=== PATIENT | female | born 1960 | race Caucasian/White ===

== ENCOUNTER 2020-03-04 09:34 | Emergency (ER) | payer BC, OTHER ==
--- NOTE | 2020-03-04 10:15 | EDPHYS ---
Physician Documentation [facility] Name: Ita Valles Age: 59 yrs Sex: Female : 1960 Arrival Date: 03/04/2020 Time: 09:35 Bed 24 Private MD: ED Physician Jose Reynoso HPI: 03/04 10:11 This 59 yrs old Female presents to ER via Ambulatory with complaints of jr8 Laceration To Head. 10:11 The patient has a laceration related to: fall injury occurred at home. The jr8 laceration(s) is(are) located on the back of head. Onset: The symptoms/episode began/occurred acutely, today. Associated signs and symptoms: The patient has no apparent associated signs or symptoms. The patient has not experienced similar symptoms in the past. The patient has not recently seen a physician. Patient stated that she tripped and hit back of head on door frame. Denies LOC . Historical: - Allergies: 09:56 No Known Allergies; iw - Home Meds: 09:56 atenolol Oral [Active]; sertraline oral oral [Active]; amlodipine oral [Active]; iw Simvastatin Oral [Active]; - PMHx: 09:56 Hyperlipidemia; Hypertension; iw - PSHx: 09:56 None; iw - Immunization history:: Adult Immunizations up to date. - Social history:: Smoking status: . ROS: 10:11 Eyes: Negative for injury, pain, redness, and discharge, ENT: Negative for injury, jr8 pain, and discharge, Neck: Negative for injury, pain, and swelling, Cardiovascular: Negative for chest pain, palpitations, and edema, Respiratory: Negative for shortness of breath, cough, wheezing, and pleuritic chest pain, Abdomen/GI: Negative for abdominal pain, nausea, vomiting, diarrhea, and constipation, Back: Negative for injury and pain, MS/Extremity: Negative for injury and deformity, Neuro: Negative for headache, weakness, numbness, tingling, and seizure. 10:11 Skin: Positive for laceration(s). Exam: 10:11 Eyes: Pupils equal round and reactive to light, extra-ocular motions intact. Lids and jr8 lashes normal. Conjunctiva and sclera are non-icteric and not injected. Cornea within normal limits. Periorbital areas with no swelling, redness, or edema. ENT: Nares patent. No nasal discharge, no septal abnormalities noted. Tympanic membranes are normal and external auditory canals are clear. Oropharynx with no redness, swelling, or masses, exudates, or evidence of obstruction, uvula midline. Mucous membranes moist. Neck: Trachea midline, no thyromegaly or masses palpated, and no cervical lymphadenopathy. Supple, full range of motion without nuchal rigidity, or vertebral point tenderness. No Meningismus. Cardiovascular: Regular rate and rhythm with a normal S1 and S2. No gallops, murmurs, or rubs. Normal PMI, no JVD. No pulse deficits. Respiratory: Lungs have equal breath sounds bilaterally, clear to auscultation and percussion. No rales, rhonchi or wheezes noted. No increased work of breathing, no retractions or nasal flaring. Abdomen/GI: Soft, non-tender, with normal bowel sounds. No distension or tympany. No guarding or rebound. No evidence of tenderness throughout. Back: No spinal tenderness. No costovertebral tenderness. Full range of motion. MS/ Extremity: Pulses equal, no cyanosis. Neurovascular intact. Full, normal range of motion. Neuro: Awake and alert, GCS 15, oriented to person, place, time, and situation. Cranial nerves II-XII grossly intact. Motor strength 5/5 in all extremities. Sensory grossly intact. Cerebellar exam normal. Normal gait. 10:11 Head/face: Noted is a laceration(s), that is deep, that is linear, 2 cm(s), of the back of head. Vital Signs: 09:56 BP 153 / 74; Pulse 75; Resp 16; Temp 98.6; Pulse Ox 100% on R/A; Weight 77.11 kg; iw Height 5 ft. 9 in. (175.26 cm); Pain 4/10; 09:56 Body Mass Index 25.10 (77.11 kg, 175.26 cm) iw Laceration: 10:11 Wound Repair of 2cm ( 0.8in ) subcutaneous laceration to back of head. Linear shaped.. jr8 Minimal bleeding noted.. Distal neuro/vascular/tendon intact. Wound prep: Moderate cleansing with hibiclenz by nurse, Wound irrigation with saline by nurse. Skin closed with 2 darian [place] using staple gun. Patient tolerated well. MDM: 10:04 Patient medically screened. jr8 10:11 Data reviewed: vital signs, nurses notes, and as a result, I will discharge patient. jr8 Data interpreted: Pulse oximetry: on room air is 100 %. Interpretation: normal. Counseling: I had a detailed discussion with the patient and/or guardian regarding: the historical points, exam findings, and any diagnostic results supporting the discharge/admit diagnosis, the need for outpatient follow up, a family practitioner, to return to the emergency department if symptoms worsen or persist or if there are any questions or concerns that arise at home. ED course: Per patient up to date on Tetanus. Administered Medications: No medications were administered Disposition: 13:16 Co-signature as Attending Physician, Jose Reynoso MD. rn Disposition: 03/04/20 10:15 Discharged to Home. Impression: Laceration without foreign body of scalp. - Condition is Stable. - Discharge Instructions: Laceration Care, Adult, Stitches, [place], or Adhesive Wound Closure. - Medication Reconciliation Form, Thank You Letter, Antibiotic Education, Prescription Opioid Use form. - Follow up: Private Physician; When: 1 week; Reason: Wound Recheck, Recheck today's complaints, Continuance of care, Staple/Suture removal, Re-evaluation by your physician. - Problem is new. - Symptoms have improved. Signatures: Beena Street RN RN iw Nieto, Roman, MD MD rn Roszak, Josh, PA PA jr8 Corrections: (The following items were deleted from the chart) 10:23 10:15 03/04/2020 10:15 Discharged to Home. Impression: Laceration without foreign body iw of scalp. Condition is Stable. Forms are Medication Reconciliation Form, Thank You Letter, Antibiotic Education, Prescription Opioid Use. Follow up: Private Physician; When: 1 week; Reason: Wound Recheck, Recheck today's complaints, Continuance of care, Staple/Suture removal, Re-evaluation by your physician. Problem is new. Symptoms have improved. jr8
--- NOTE | 2020-03-04 10:15 | ER ---
Nurse's Notes [facility] Name: Ita Valles Age: 59 yrs Sex: Female : 1960 Arrival Date: 03/04/2020 Time: 09:35 Bed 24 Private MD: Diagnosis: Laceration without foreign body of scalp Presentation: 03/04 09:54 Chief complaint: Patient states: was cleaning floors an slipped, fell back and hit back iw of head on floor, abrasion to back of head, was worried it might need stitches, denies LOC. Coronavirus screen: At this time, the client does not indicate any symptoms associated with coronavirus-19. Ebola Screen: Patient negative for fever greater than or equal to 101.5 degrees Fahrenheit, and additional compatible Ebola Virus Disease symptoms Patient denies exposure to infectious person. Patient denies travel to an Ebola-affected area in the 21 days before illness onset. No symptoms or risks identified at this time. Complicating Factors: There are no complicating factors for this patient. Initial Sepsis Screen: Does the patient meet any 2 criteria? No. Patient's initial sepsis screen is negative. Does the patient have a suspected source of infection? No. Patient's initial sepsis screen is negative. Risk Assessment: Do you want to hurt yourself or someone else? Patient reports no desire to harm self or others. Onset of symptoms was March 04, 2020. 09:54 Method Of Arrival: Ambulatory iw 09:54 Acuity: LUANNE 4 iw Historical: - Allergies: 09:56 No Known Allergies; iw - Home Meds: 09:56 atenolol Oral [Active]; sertraline oral oral [Active]; amlodipine oral [Active]; iw Simvastatin Oral [Active]; - PMHx: 09:56 Hyperlipidemia; Hypertension; iw - PSHx: 09:56 None; iw - Immunization history:: Adult Immunizations up to date. - Social history:: Smoking status: . Screenin:07 Abuse screen: Denies threats or abuse. Denies injuries from another. Nutritional iw screening: No deficits noted. Tuberculosis screening: No symptoms or risk factors identified. Fall Risk None identified. Assessment: 10:06 General: Appears in no apparent distress. Behavior is calm, cooperative. Pain: iw Complains of pain in back of head. Neuro: Level of Consciousness is awake, alert, obeys commands, Oriented to person, place, time, situation, Denies dizziness, headache. Cardiovascular: Patient's skin is warm and dry. Musculoskeletal: Range of motion: intact in all extremities. Injury Description: Laceration sustained to scalp is superficial, 0.5 to 2.5 cm long. Vital Signs: 09:56 BP 153 / 74; Pulse 75; Resp 16; Temp 98.6; Pulse Ox 100% on R/A; Weight 77.11 kg; iw Height 5 ft. 9 in. (175.26 cm); Pain 4/10; 09:56 Body Mass Index 25.10 (77.11 kg, 175.26 cm) iw ED Course: 09:35 Patient arrived in ED. as 09:55 Triage completed. iw 09:[address], RN is Primary Nurse. iw 10:04 Justino Barbosa PA is PHCP. jr8 10:04 Jose Reynoso MD is Attending Physician. jr8 10:06 Arm band placed on. iw 10:06 Patient has correct armband on for positive identification. iw 10:07 Assist provider with laceration repair on back of head that was 2.5 cm. or less using iw darian. Set up tray. Performed by Justino ELKINS Patient tolerated well. 10:07 Patient did not have IV access during this emergency room visit. iw Administered Medications: No medications were administered Outcome: 10:15 Discharge ordered by . jr8 10:22 Discharged to home ambulatory. iw 10:22 Condition: good 10:22 Discharge instructions given to patient, Instructed on discharge instructions, follow up and referral plans. wound care, Demonstrated understanding of instructions, follow-up care, wound care. 10:23 Patient left the ED. iw Signatures: Rosio Jerry as Beena Street RN RN iw Justino Barbosa PA PA jr8 Corrections: (The following items were deleted from the chart) 10:22 10:07 No provider procedures requiring assistance completed. iw iw
[2020-03-04 10:45] VITALS: BP 153/74; TEMP 98.6; O2SAT 100
== END 2020-03-04 10:23 | disposition home or self-care (01) ==
LOC: ER 09:34
PROC: 0JQ00ZZ Repair Scalp Subcutaneous Tissue and Fascia, Open Approach (ICD-10-PCS; principal; 2020-03-04)
DX: S01.01XA Laceration without foreign body of scalp, initial encounter (principal); W01.198A Fall on same level from slipping, tripping and stumbling with subsequent striking against other object, initial encounter; Y93.9 Activity, unspecified; Y92.009 Unspecified place in unspecified non-institutional (private) residence as the place of occurrence of the external cause; I10 Essential (primary) hypertension; E78.5 Hyperlipidemia, unspecified
CPT/HCPCS: 99283

== ENCOUNTER 2020-03-11 09:23 | Emergency (ER) | payer BC ==
--- NOTE | 2020-03-11 09:50 | EDPHYS ---
Physician Documentation [facility] Name: Ita Valles Age: 59 yrs Sex: Female : 1960 Arrival Date: 03/11/2020 Time: 09:25 Bed 14 Private MD: ED Physician Kalin Biswas HPI: 03/11 11:33 This 59 yrs old Female presents to ER via Ambulatory with complaints of kdr Staple Removal. 11:33 The patient has darian on the left parietal area. Previous treatment: The patient was kdr initially treated 7 day(s) ago, the care was rendered at [facility], Treatment type: The patient's original treatment included darian, Outpatient prescription(s): The patient was given prescription(s) for nothing, Previous recheck: the patient has not been checked since the original treatment. Sutures/darian progress: The patient has no c/o's. The wound is well-healing with no redness, swelling, discharge, or dehiscence reported. The patient has not experienced similar symptoms in the past. The patient has been recently seen by a physician: The patient has been recently seen at the [facility] Emergency Department, last week. Historical: - Allergies: 09:39 No Known Allergies; hb - Home Meds: 09:39 amlodipine oral [Active]; Atenolol Oral [Active]; sertraline Oral [Active]; Simvastatin hb Oral [Active]; - PMHx: 09:39 Hyperlipidemia; Hypertension; hb - PSHx: 09:39 None; hb - Immunization history:: Adult Immunizations up to date. - Social history:: Smoking status: Patient denies any tobacco usage or history of. ROS: 11:33 Constitutional: Negative for fever, chills, and weight loss, Eyes: Negative for injury, kdr pain, redness, and discharge, Neck: Negative for injury, pain, and swelling, Skin: Negative for injury, rash, and discoloration. Exam: 11:33 Constitutional: This is a well developed, well nourished patient who is awake, alert, kdr and in no acute distress. 11:33 Head/face: Noted is two staple in the left posterior occiput that are healing well. Vital Signs: 09:37 BP 148 / 81; Pulse 82; Resp 16; Temp 97.4; Pulse Ox 100% ; Pain 0/10; hb Procedures: 11:33 Suture/Staple removal: Removed 2 darian, from left parietal area, site appears well kdr healed, dressed with Patient tolerated well. MDM: 09:50 Patient medically screened. kdr 11:33 Data reviewed: vital signs, nurses notes. Counseling: I had a detailed discussion with kdr the patient and/or guardian regarding: the historical points, exam findings, and any diagnostic results supporting the discharge/admit diagnosis, the need for outpatient follow up. Administered Medications: No medications were administered Disposition: 03/11/20 09:50 Discharged to Home. Impression: Scalp staple removal. - Condition is Stable. - Discharge Instructions: Suture Removal, Care After, Stitches, [place], or Adhesive Wound Closure, [id number]. - Medication Reconciliation Form, Thank You Letter form. - Follow up: Private Physician; When: 2 - 3 days; Reason: If symptoms return, Further diagnostic work-up, Recheck today's complaints, Continuance of care, Re-evaluation by your physician. - Problem is new. - Symptoms are resolved. Signatures: Kalin Biswas MD MD [facility] Dano Paredes RN RN Saritha De Oliveira RN RN Corrections: (The following items were deleted from the chart) 10:11 09:50 03/11/2020 09:50 Discharged to Home. Impression: Scalp staple removal. Condition em is Stable. Forms are Medication Reconciliation Form, Thank You Letter, Antibiotic Education, Prescription Opioid Use. Follow up: Private Physician; When: 2 - 3 days; Reason: If symptoms return, Further diagnostic work-up, Recheck today's complaints, Continuance of care, Re-evaluation by your physician. Problem is new. Symptoms are resolved. kdr
--- NOTE | 2020-03-11 09:50 | ER ---
Nurse's Notes [facility] Name: Ita Valles Age: 59 yrs Sex: Female : 1960 Arrival Date: 03/11/2020 Time: 09:25 Bed 14 Private MD: Diagnosis: Scalp staple removal Presentation: 03/11 09:37 Chief complaint: Two darian to back of head 1 week ago, here for removal. Coronavirus hb screen: At this time, the client does not indicate any symptoms associated with coronavirus-19. Ebola Screen: No symptoms or risks identified at this time. Initial Sepsis Screen: Does the patient meet any 2 criteria? No. Patient's initial sepsis screen is negative. Does the patient have a suspected source of infection? No. Patient's initial sepsis screen is negative. Risk Assessment: Do you want to hurt yourself or someone else? Patient reports no desire to harm self or others. Onset of symptoms was March 11, 2020. 09:37 Method Of Arrival: Ambulatory hb 09:37 Acuity: LUANNE 4 hb Historical: - Allergies: 09:39 No Known Allergies; hb - Home Meds: 09:39 amlodipine oral [Active]; Atenolol Oral [Active]; sertraline Oral [Active]; Simvastatin hb Oral [Active]; - PMHx: 09:39 Hyperlipidemia; Hypertension; hb - PSHx: 09:39 None; hb - Immunization history:: Adult Immunizations up to date. - Social history:: Smoking status: Patient denies any tobacco usage or history of. Screenin:40 Abuse screen: Denies threats or abuse. Denies injuries from another. Nutritional hb screening: No deficits noted. Tuberculosis screening: No symptoms or risk factors identified. Fall Risk None identified. Assessment: 10:00 General: Appears in no apparent distress. comfortable, Behavior is calm, cooperative, em appropriate for age. Pain: Denies pain. Neuro: Level of Consciousness is awake, alert, obeys commands, Oriented to person, place, time, situation, Appropriate for age. Cardiovascular: Capillary refill < 3 seconds Patient's skin is warm and dry. Respiratory: Airway is patent Respiratory effort is even, unlabored, Respiratory pattern is regular, symmetrical. Derm: Skin is intact, is healthy with good turgor, Skin is pink, warm \T\ dry. Musculoskeletal: Capillary refill < 3 seconds, Range of motion: intact in all extremities. Vital Signs: 09:37 BP 148 / 81; Pulse 82; Resp 16; Temp 97.4; Pulse Ox 100% ; Pain 0/10; hb ED Course: 09:25 Patient arrived in ED. ds1 09:33 Kalin Biswas MD is Attending Physician. kdr 09:38 Triage completed. hb 09:39 Arm band placed on. hb 09:40 Patient has correct armband on for positive identification. Bed in low position. Call hb light in reach. 10:10 Dano Paredes, RN is Primary Nurse. em 10:11 No provider procedures requiring assistance completed. Patient did not have IV access em during this emergency room visit. Administered Medications: No medications were administered Outcome: :50 Discharge ordered by . kdr 10:11 Discharged to home ambulatory. em 10:11 Condition: good 10:11 Discharge instructions given to patient, Instructed on discharge instructions, follow up and referral plans. Demonstrated understanding of instructions, follow-up care. 10:11 Patient left the ED. em Signatures: Kalin Biswas MD MD kdr Dano Paredes, RN RN em Hoda Schuster ds1 Saritha De Oliveira RN RN hb
[2020-03-11 10:17] VITALS: BP 148/81; TEMP 97.4; O2SAT 100
== END 2020-03-11 10:11 | disposition home or self-care (01) ==
LOC: ER 09:23
DX: Z48.02 Encounter for removal of sutures (principal)
CPT/HCPCS: 99281